=== PATIENT | male | born 1975 | race Caucasian/White ===

== ENCOUNTER → 2016-05-24 | Outpatient (CLI) | payer BC ==
[2016-05-24 21:06] LABS: DAYS OF ABSTINENCE 2 DAYS; METHOD OF COLLECTION MASTURBATION; SEMEN TIME OF COLLECTION 1445; TYPE OF SPECIMEN CONTAINER STERILE
[2016-05-24 21:07] LABS: COLLECTION PROBLEM YES; SEMEN COLOR GRAY OR GRAY-WHITE (GRY/GRYWHTE); SEMEN VOLUME 1.2 ML (>1.5); TRANSPORT PROBLEM NO
[2016-05-24 21:09] LABS: SPERM VIABILITY STAIN NOT PERFORMED % (>58%)
== END | disposition home or self-care (01) ==
LOC: C.LABSPEC 14:45
PROVIDERS: ATTEND Obstetrics & Gynecology
DX: N46.9 Male infertility, unspecified (principal)

== ENCOUNTER → 2016-06-27 | Outpatient (CLI) | payer BC ==
[2016-06-27 11:56] LABS: SEMEN TIME OF COLLECTION 1105
[2016-06-27 11:57] LABS: COLLECTION PROBLEM NO; DAYS OF ABSTINENCE 3; METHOD OF COLLECTION MASTURBATION; SEMEN COLOR YELLOW-GRAY (GRY/GRYWHTE); SEMEN VOLUME 3.5 ML (>1.5); TRANSPORT PROBLEM NO; TYPE OF SPECIMEN CONTAINER STERILE CUP
[2016-06-27 11:58] LABS: SEMEN LIQUEFACTION COMPLETE 1145; SPERM VIABILITY STAIN NOT INDICATED % (>58%)
--- NOTE | 2016-06-28 09:32 | CODING QUERY NO DIAGNOSIS ---
TREATMENT RENDERED WITHOUT A DIAGNOSIS 76 To promote full compliance with coding requirements relating to patient care, physician participation is requested in all cases of continuity writer uncertainty. Please assist us with providing a diagnosis/symptom for the test(s) below: A diagnosis/symptom was not documented on your Order. A valid diagnosis/symptom is required to bill all insurances. Please remember that we are unable to code a diagnosis of rule out, probable, possible, questionable, or suspected. DOS 06/27/16 Tests that require a diagnosis: * SEMEN ANALYSIS DIAGNOSIS: Provider Signature: Date: Thank you Laureen Faria [employer] Once completed, please kindly fax back to [phone] For questions please call [phone]
== END | disposition home or self-care (01) ==
LOC: C.LAB 11:33
PROVIDERS: ATTEND Obstetrics & Gynecology
DX: N46.9 Male infertility, unspecified (principal)